=== PATIENT | male | born 1970 | race Caucasian/White ===

== ENCOUNTER 2018-08-13 08:30 | Emergency (ER) | payer OTHER ==
[~2018-08-13] VITALS: Wt 73.5 kg
[~2018-08-13 08:30] MED LIST: AMOX500T; GEMF600T; HYDR-3498 PO; MECL-77; OMEP20CA9; ZOF8 PO; ZOLP5TAB7; [UNRECOGNIZED DRUG - CODE]
[2018-08-13 08:33] VITALS: BP 150/63; PULSE 68; RESP 15
[2018-08-13] MEDS ORDERED: ACET325T33 PO (09:09)
--- NOTE | 2018-08-13 09:55 | ERD ---
ER Documentation Chief Complaint Chief Complaint LAC ON FOREHEAD HPI 47-year-old male presenting with laceration on left upper forehead. Patient has a linear laceration that he sustained this morning when he walked into an air conditioning unit. He denies any loss of conscious. Denies any dizziness. Denies vomiting. Denies headaches. Has not use any medication or taking any medication for the symptoms. Denies medical problems. NKDA. Surgical history of cyst removal in his neck. Social history denies ROS All systems reviewed and are negative except as per history of present illness. Medications Home Meds Active Scripts Acetaminophen* (Tylenol*) 325 Mg Tablet, 1 TAB PO Q6 PRN for PAIN AND OR ELEVATED TEMP, #20 TAB Prov:DEMOND HARRIS PA-C 08/13/18 Hydrocodone Bit-Acetaminophen* ([place]*) 5-325 Mg Tab, 1 TAB PO Q6 PRN for PAIN, #5 TAB Prov:ROCKY VAUGHN PA-C 08/05/15 Ondansetron Hcl* (Zofran* ODT) 8 mg -ODT Tab.disper, 8 MG PO Q6 PRN for NAUSEA AND/OR VOMITING, #12 TAB Prov:ROCKY VAUGHN PA-C 08/05/15 Reported Medications Neomycin Sulfate (Chip-Fradin) 125 Mg/5 Ml Solution 08/24/10 Zolpidem Tartrate* (Zolpidem Tartrate*) 5 Mg Tablet 08/24/10 Amoxicillin Trihydrate (Amoxicillin) 500 Mg Tablet 08/24/10 Meclizine Hcl* (Meclizine Hcl*) 25 Mg Tablet 08/24/10 Omeprazole* (Prilosec*) 20 Mg Capsule. 09/07/09 Gemfibrozil* (Lopid*) 600 Mg Tablet 09/07/09 Allergies Allergies: Uncoded Allergies: NONE (Allergy, Mild, 09/07/09) PMhx/Soc History of Surgery: Yes (LEFT ELBOW SX) Anesthesia Reaction: No Hx Neurological Disorder: No Hx Respiratory Disorders: No Hx Cardiac Disorders: No Hx Psychiatric Problems: No Hx Miscellaneous Medical Probl: Yes (HIGH CHOLESTEROL) Hx Alcohol Use: Yes Hx Substance Use: No Hx Tobacco Use: No FmHx Family History: No diabetes, No coronary disease, No other Physical Exam Vitals Vital Signs Date Temp Pulse Resp B/P (MAP) Pulse Ox O2 O2 Flow FiO2 Time Delivery Rate 08/13/18 97.5 68 15 150/63 100 08:33 (92) Physical Exam GENERAL: The patient is well-appearing, well-nourished, in no acute distress HEENT: Atraumatic. Conjunctivae are pink. Pupils equal, round, and reactive to light. There is no scleral icterus. Tympanic membranes clear bilaterally. Oropharynx clear. CHEST: Clear to auscultation bilaterally. There are no rales, wheezes or rhonchi. HEART: Regular rate and rhythm. No murmurs, clicks, rubs or gallops. No S3 or S4. NEUROLOGIC: Alert and oriented. Cranial nerves II through XII intact. Motor strength in all 4 extremities with 5 out of 5 strength. Sensation grossly intact. SKIN: 1cm Linear laceration on left upper forehead with no skin separation. Mild bleeding. Procedures/MDM ER course: Site cleaned with copious amounts of normal saline. Dermabond applied. MDM: 47-year-old male presenting with laceration to left upper forehead. I have low suspicion for intracranial hemorrhage or neuro deficit. I have low suspicion for skull fracture. Patient has linear laceration was treated with Dermabond. I do not feel that sutures were indicated. Patient is discharged stricter precautions. Patient is told symptoms change or worsen to immediately return to the ER. All questions answered at discharge Departure Diagnosis: Primary Impression: Laceration Condition: Stable Patient Instructions: Laceration, Scalp Referrals: [facility] YOU HAVE RECEIVED A MEDICAL SCREENING EXAM AND THE RESULTS INDICATE THAT YOU DO NOT HAVE A CONDITION THAT REQUIRES URGENT TREATMENT IN THE EMERGENCY DEPARTMENT. FURTHER EVALUATION AND TREATMENT OF YOUR CONDITION CAN WAIT UNTIL YOU ARE SEEN IN YOUR DOCTORS OFFICE WITHIN THE NEXT 1-2 DAYS. IT IS YOUR RESPONSIBILITY TO MAKE AN APPOINTMENT FOR FOLOW-UP CARE. IF YOU HAVE A PRIMARY DOCTOR --you should call your primary doctor and schedule an appointment IF YOU DO NOT HAVE A PRIMARY DOCTOR YOU CAN CALL OUR PHYSICIAN REFERRAL HOTLINE AT IF YOU CAN NOT AFFORD TO SEE A PHYSICIAN YOU CAN CHOSE FROM THE FOLLOWING [facility] CLINICS [facility] [address] [facility]. [facility] [address] [facility] [facility] [address] [facility] [address] [facility] [address] [facility] [facility] [address] Additional Instructions: FOLLOW UP WITH YOUR PRIMARY CARE PHYSICIAN TOMORROW.Return to this facility if you are not improving as expected. DEMOND HARRIS PA-C Aug 13, 2018 09:55
== END 2018-08-13 09:23 | disposition home or self-care (01) ==
LOC: FTE 08:30
DX: S01.81XA Laceration without foreign body of other part of head, initial encounter (principal); W22.8XXA Striking against or struck by other objects, initial encounter; Y92.9 Unspecified place or not applicable
CPT/HCPCS: 12011; Z7502